=== PATIENT | male | born 1930 | race American Indian/Alaskan Native ===

== ENCOUNTER 2016-09-26 06:02 | Day surgery (SDC) | payer MEDICARE ==
[2016-09-20 13:02] VITALS: BMI 29.2
[2016-09-26 06:34] LABS: ADD MANUAL DIFF? NO
[2016-09-26 06:45] LABS: BASO # 0.03 K/mm3 (0.0-2.0); BASO % 0.5 % (0.0-3.0); EOS # 0.2 (0.0-0.7); GRAN # 2.94 (1.4-6.5); GRAN % 51.5 % (50.0-68.0); HEMATOCRIT 40.2 % (42.0-52.0); LYMPH # 2.1 (1.2-3.4); LYMPH % 36.8 % (22.0-35.0); MEAN CELL VOLUME 90.7 fL (80.0-105.0); MEAN CORPUSCULAR HEMOGLOBIN 31.4 pg (25.0-35.0); MEAN CORPUSCULAR HGB CONC 34.6 g/dl (31.0-37.0); MEAN PLATELET VOLUME 9.8 fl (7.0-11.0); MONO # 0.5 (0.1-0.6); MONO % 8.2 % (1.0-6.0); PLATELET COUNT 148 10^3/uL (120.0-450.0); WHITE BLOOD COUNT 5.7 10^3/ul (4.5-11.0)
[2016-09-26 06:47] LABS: BLOOD UREA NITROGEN 17 mg/dL (7-21); CALCIUM 8.8 mg/dL (8.4-10.5); CARBON DIOXIDE 29 mmol/L (21-33); CHLORIDE 104 mmol/L (98-107); CHOLESTEROL 183 mg/dL (130-200); GFR AFRICAN-AMERICAN > 60; GLUCOSE,RANDOM 101 mg/dL (70-110); POTASSIUM 4.3 mmol/L (3.6-5.0); SODIUM 139 mmol/L (132-148)
[2016-09-26 06:54] LABS: INR 1.08 (0.93-1.08); PARTIAL THROMBOPLASTIN TIME 28.5 Seconds (23.7-30.8)
[2016-09-26] MEDS ORDERED: Lidocaine 2% Inj (20ml) ONE (07:06)
[2016-09-26 07:07] VITALS: RESP 18; TEMP 98.4; O2SAT 96
[2016-09-26] MEDS ORDERED: Nitroglycerin 50mg in D5W 250 ML IV ONE (07:07)
[2016-09-26] MEDS ORDERED: Midazolam 2 MG/2 ML VIAL ONE (07:37)
--- NOTE | 2016-09-26 08:16 | HP ---
REASON FOR ADMISSION: Left heart catheterization, possible angioplasty. BRIEF CLINICAL HISTORY: This is an 85-year-old male with past medical history significant for polio, hypertension, deep venous thrombosis in the right lower extremity who was admitted in 08/2016, underwent a stress test that was equivocal , so patient is scheduled for elective cardiac cath and possible angioplasty. The patient at that time was admitted for multilobar pneumonia. PAST MEDICAL HISTORY: Significant for polio, hypertension, DVT of right lower extremity. PAST SURGICAL HISTORY: Significant for abscess removed from the left shoulder, history of fall, history of broken femur, history of open reduction internal fixation, history of bleeding peptic ulcer and exploratory laparotomy and resection of the stomach in 1972. SOCIAL HISTORY: Active tobacco abuse, 1 pack. Denies any history of alcohol abuse. CURRENT MEDICATIONS: The patient is taking Clonidine 0.2 mg 3 times a day, Coumadin 5 mg daily, phenytoin, nifedipine, metoprolol, losartan, and furosemide. Previous cardiac workup as follows: The patient had a stress test, myocardial perfusion study 08/21/2016 that showed essentially normal myocardial perfusion no attenuation; however balanced ischemia, multivessel disease cannot be ruled out, dated 08/21/2016. The patient had echocardiography done on 08/20/2016 that showed ejection fraction 50%, trace aortic regurgitation, aortic sclerosis with mild aortic stenosis, trace to mild mitral regurgitation, mild tricuspid regurgitation, right ventricular systolic pressure 38. REVIEW OF SYSTEMS: As per HPI. PHYSICAL EXAMINATION: VITAL SIGNS: Temperature afebrile, heart rate 74, blood pressure 130/80. HEENT: PERRLA. Extraocular muscles intact. NECK: Supple. No carotid bruits. No thyromegaly. CHEST: Clear to auscultation. HEART: S1, S2 regular. ABDOMEN: Soft. EXTREMITIES: Clubbing and cyanosis negative. LABORATORY DATA: Blood workup on 08/22/2016, WBC 8.6 hemoglobin 13.0, hematocrit 37.3, platelet count 161. Chemistry shows sodium 138, potassium _4.0 , chloride 99, carbon dioxide 33, anion gap of 9, BUN 14, creatinine 0.6. IMPRESSION: Abnormal stress test. Preserved left ventricular function, mitral regurigtation, tricuspid regurgitation, chest pain. RECOMMENDATION: Will give 300 Plavix, aspirin. Risks, benefits, alternatives discussed with the patient. The patient agreed,will proceed with cardiac catheterization. Further recommendation after cardiac catheterization. Thank you, Dr. Humphries, for providing the opportunity in taking care of the patient. Irena Diallo MD cc: Judy Humphries MD 305 TT: 09/25/2016 21:21:40 nathaniel FLOYD
[2016-09-26] MEDS ORDERED: Morphine 2 mg/ml ISec ONE ×2 (08:20→08:30)
[2016-09-26] MEDS ORDERED: Eptifibatide 20 mg/10mL Inj IVP ONE (08:24)
[2016-09-26] MEDS ORDERED: Iohexol 350mgl/ml 50 ML ONE (08:27)
[2016-09-26] MEDS ORDERED: Sodium Chloride 0.9% 1,000 ML IV SCH (09:15)
--- NOTE | 2016-09-26 09:24 | CARD ---
APPROVED REPORT Procedure(s) performed: Left Heart Catheterization PTCA with Stenting of Mid Circumflex with NEY HISTORY The patient is a 85 year-old male with a history of : most recent EF: 53%. (EF Method: RADIONUCLIDE), peripheral vascular disease, tobacco history() : The patient is a current smoker , hypertension , dyslipidemia , Hx of polio with left sided weakness and DVT of Right leg on coumadin, abnormal stress test, N0 perfusion defect but can not R/O Ballanced Ischemia or triple vesel disease.. INDICATION The indication(s) include : positive stress test. CASE TECHNIQUE The patient was brought electively to the Cardiac Catheterization Laboratory in a fasting state and was prepped and draped in a sterile manner. The left wrist was infiltrated with 2% Lidocaine subcutaneous anesthesia. A 6 Fr Glidesheath (Radial) sheath was inserted into the left radial artery without difficulty. Coronary angiography was performed using coronary diagnostic catheters. The left coronary system was accessed and visualized with a Diagnostic , JL4.0, 5Fr catheter. The right coronary system was accessed and visualized with a Diagnostic ,5 Fr JL 4 catheter. The left ventricle was accessed and visualized with a Pig tail catheter. Left ventricular/Aortic Valve gradient assessed on pullback. Left ventriculogram was performed in FAUSTIN projection. The patient tolerated the procedure well and there were no complications associated with the procedure. Vessel Analysis The patient's coronary anatomy is left dominant. The left main coronary artery is a large size vessel with intimal irregularities and without significant stenosis. The left main bifurcates to the left anterior descending and circumflex. The left anterior descending artery is a medium size vessel with diffuse calcification noted throughout this vessel and without significant stenosis. The first diagonal branch is a small size vessel with diffuse calcification noted throughout this vessel and without significant stenosis. The second diagonal branch is a small size vessel with diffuse calcification noted throughout this vessel and without significant stenosis. The circumflex artery is a large size vessel with diffuse calcification noted throughout this vessel and with significant stenosis. There is a 90% stenosis in the mid segment. Proximal CX has 50-60% stenosis The first obtuse marginal branch is a small size vessel with diffuse calcification noted throughout this vessel and without significant stenosis. The second obtuse marginal branch is a small size vessel with diffuse calcification noted throughout this vessel and without significant stenosis. The left posterior descending artery is a large size vessel with diffuse calcification noted throughout this vessel and without significant stenosis. The right coronary artery is a medium size vessel with diffuse calcification noted throughout this vessel and with significant stenosis. There is a 70-80% stenosis in the proximal segment. Non dominant Left Ventricle The left ventricle is normal in size with normal contractility. There was no cardiomyopathy. The left ventricular ejection fraction is estimated to be 55%. The left ventricular end diastolic pressure is 30-35 mmHg. There was no gradient across the aortic valve upon pullback. PCI Technique Lesion Anticoagulation was achieved with Heparin. Percutaneous coronary intervention was performed on the mid circumflex artery segment. The lesion stenosis prior to intervention was 90% with CRYS 2 flow. A 6 Fr XB 3.5 Guide Catheter was used to engage the ostium. BALLOON DILATION A Balloon catheter 2.5 x 10 mm Sprinter RX was inserted and inflated up to 10.00atm for 10seconds. STENT DEPLOYMENT A drug-eluting stent 3.5 x 18 mm Resolute NEY was inserted and inflated up to 12.00atm for 12seconds. POST STENT DEPLOYMENT BALLOON DILATION A Balloon catheter 4.0 x 9 mm Sprinter NC was inserted and inflated up to 14.00atm for 14seconds. Final angiography reveals 0 % stenosis with CRYS 3 flow. 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 EF-55%, EDP-30-35 mmof Hg. Successful PTCa with NEY of CX Recommendations Aggressive Medical TherapyCardiac Risk Reduction Program Weight Loss Reduction Program Plavix and Coumadin for 6 months ( coumadin for DVT), then coumadin and baby asa. Cc; Carlos Gill MD.
[2016-09-26] MEDS ORDERED: Pantoprazole 40 mg EC Tab PO SCH (10:00)
[2016-09-26] MEDS ORDERED: NIFEdipine 90 mg ER Tab PO SCH (10:00)
[2016-09-26] MEDS ORDERED: Metoprolol Succinate 50 mg XL Tab PO SCH (10:00)
[2016-09-26 12:59] LABS: ADD MANUAL DIFF? NO
[2016-09-26 13:02] LABS: BASO # 0.04 K/mm3 (0.0-2.0); BASO % 0.7 % (0.0-3.0); EOS # 0.1 (0.0-0.7); GRAN # 3.54 (1.4-6.5); GRAN % 57.5 % (50.0-68.0); HEMATOCRIT 39.6 % (42.0-52.0); LYMPH % 32.6 % (22.0-35.0); MEAN CELL VOLUME 90.6 fL (80.0-105.0); MEAN CORPUSCULAR HEMOGLOBIN 31.8 pg (25.0-35.0); MEAN CORPUSCULAR HGB CONC 35.1 g/dl (31.0-37.0); MEAN PLATELET VOLUME 9.5 fl (7.0-11.0); MONO # 0.4 (0.1-0.6); MONO % 7.2 % (1.0-6.0); PLATELET COUNT 155 10^3/uL (120.0-450.0); WHITE BLOOD COUNT 6.1 10^3/ul (4.5-11.0)
[2016-09-26 13:11] LABS: BLOOD UREA NITROGEN 16 mg/dL (7-21); CALCIUM 8.6 mg/dL (8.4-10.5); CARBON DIOXIDE 26 mmol/L (21-33); CHLORIDE 101 mmol/L (98-107); GFR AFRICAN-AMERICAN > 60; GLUCOSE,RANDOM 121 mg/dL (70-110); POTASSIUM 4.1 mmol/L (3.6-5.0); SODIUM 136 mmol/L (132-148)
[2016-09-26] MEDS ORDERED: Bacitracin 500 Units/gm Oint Foilpak UD ONE (14:26)
--- NOTE | 2016-09-26 15:24 | CARD ---
APPROVED REPORT EKG Measurement Heart [id number] <Conclusion> Sinus rhythm with 1st degree AV block Voltage criteria for left ventricular hypertrophy Abnormal ECG
[2016-09-26 17:12] VITALS: BP 95/61; PULSE 53
== END 2016-09-26 18:45 | disposition home or self-care (01) ==
LOC: CATH 06:02 → 2RSO 09:03 → CATH 18:45
PROVIDERS: ATTEND Internal Medicine Cardiovascular Disease
DX: I25.10 Atherosclerotic heart disease of native coronary artery without angina pectoris (principal); I10 Essential (primary) hypertension; E78.5 Hyperlipidemia, unspecified; I73.9 Peripheral vascular disease, unspecified; Z87.01 Personal history of pneumonia (recurrent); R07.9 Chest pain, unspecified; R53.1 Weakness; B91 Sequelae of poliomyelitis; Z79.01 Long term (current) use of anticoagulants; Z86.718 Personal history of other venous thrombosis and embolism; Z95.5 Presence of coronary angioplasty implant and graft; Z91.81 History of falling; Z87.81 Personal history of (healed) traumatic fracture; Z87.11 Personal history of peptic ulcer disease; I35.0 Nonrheumatic aortic (valve) stenosis; I08.3 Combined rheumatic disorders of mitral, aortic and tricuspid valves; R94.39 Abnormal result of other cardiovascular function study
CPT/HCPCS: 36415; 80048; 80061; 85025; 85175; 85610; 85730; 86850; 86900; 93005; 93458; 99152; 99153; C1725 ×2; C1769 ×2; C1874; C1887 ×4; C9600; J1327; J1644 ×2; J1940; J2250; J2270; J3010; J7040 ×2; Q9967 ×2